=== PATIENT | female | born 1960 | race Caucasian/White ===

== ENCOUNTER 2023-01-12 06:03 | Emergency (ER) | payer BC, SELFPAY ==
[2023-01-12] VITALS (10 sets, daily range): BP systolic 126–144; BP diastolic 60–68; PULSE 54–64; RESP 12–27; TEMP 36.6; O2SAT 95–100; BMI 23.0
--- NOTE | 2023-01-12 06:08 | DI.RAD.S_ITS ---
PROCEDURE: XR CHEST 1V INDICATIONS: SOB TECHNIQUE: One view of the chest was acquired. COMPARISON: None. FINDINGS: Surgical changes and devices: None. Lungs and pleura: Lungs are clear. No pleural effusions or pneumothorax. Mediastinum: Mediastinal contours appear normal. Heart size is normal. Bones and chest wall: No suspicious bony lesions. Overlying soft tissues appear unremarkable. IMPRESSION: No acute cardiopulmonary process. Dictated by: Matthew Wisdom M.D. on 01/12/2023 at 8:27 Approved by: Matthew Wisdom M.D. on 01/12/2023 at 8:27
--- NOTE | 2023-01-12 06:17 | ED_ITS ---
HPI - General Adult <Tomás Coto DO - Last Filed: 01/12/23 17:56> General Chief complaint: Upper Respiratory Symptoms Stated complaint: SOB Time Seen by Provider: 01/12/23 06:05 Source: patient Mode of arrival: Ambulatory Limitations: no limitations History of Present Illness HPI narrative: patient is a 62-year-old female who is here for evaluation which he states is shortness of breath and feeling like she can take a deep breath. States over the past couple days she is felt very fatigued. This morning she woke up and felt like she could not catch her breath. She was also concerned about elevated blood pressure. She denies fevers. Denies chest pain. No lower extremity swe lling. No nausea vomiting or abdominal pain. Related Data Allergies Allergy/AdvReac Type Severity Reaction Status Date / Time No Known Drug Allergies Allergy Verified 01/12/23 07:03 Review of Systems <Tomás Coto DO - Last Filed: 01/12/23 17:56> Constitutional Constitutional: Reports system reviewed and no additional complaints, except as documented Cardiovascular Cardiovascular: Reports system reviewed and no additional complaints, except as documented Respiratory Respiratory: Reports system reviewed and no additional complaints, except as documented Gastrointestinal Gastrointestinal: Reports system reviewed and no additional complaints, except as documented Integumentary/Breasts Skin/Breast: Reports system reviewed and no additional complaints, except as documented Neurologic Neurologic: Reports system reviewed and no additional complaints, except as documented Hematologic/Lymphatic On Anticoagulants: No Patient History <Tomás Coto DO - Last Filed: 01/12/23 17:56> Social History Smoking Status: Never smoker Exam <Tomás Coto DO - Last Filed: 01/12/23 17:56> Initial Vital Signs Initial Vital Signs: Vital Signs Temperature 97.9 F 01/12/23 06:10 Pulse Rate 60 01/12/23 06:10 Respiratory Rate 18 01/12/23 06:10 Blood Pressure 136/63 01/12/23 06:10 Pulse Oximetry 99 01/12/23 06:10 Oxygen Delivery Method Room Air 01/12/23 06:10 Const General: cooperative, comfortable and No ill appearing HENMT Head: normal to inspection and normocephalic Resp Effort & Inspection: normal respiratory effort Auscultation: clear to auscultation bilaterally Cardio Rate: regular rate Rhythm: regular rhythm GI Inspection: normal to inspection Skin General: no rashes or lesions noted Neuro General: patient alert, patient awake and moves all extremities Extrem General: No edema <Libby Dillard DO - Last Filed: 01/12/23 18:55> Initial Vital Signs Initial Vital Signs: Vital Signs Temperature 97.9 F 01/12/23 06:10 Pulse Rate 60 01/12/23 06:10 Respiratory Rate 18 01/12/23 06:10 Blood Pressure 136/63 01/12/23 06:10 Pulse Oximetry 99 01/12/23 06:10 Oxygen Delivery Method Room Air 01/12/23 06:10 Scores <Tomás Coto DO - Last Filed: 01/12/23 17:56> HEART Score Heart Score history: Slightly Suspicious Heart Score EKG: Normal Heart Score Age: 45-64 years old Heart Score risk factors: No known risk factors Heart Score troponin: < or = to normal limit Heart Score Total: 2 <DO Alvarez Camp Last Filed: 01/12/23 18:55> HEART Score Heart Score risk factors: 1-2 risk factors Heart Score Total: 2 Course <DO Alvarez Childress Last Filed: 01/12/23 17:56> Orders Ordered: ED Orders 01/12/23 06:08 XR chest 1V Stat EKG-12 Lead Stat 01/12/23 06:15 Complete Blood Count AUTO DIFF Stat Comprehensive Metabolic Panel Stat D Dimer Stat Lipase Stat NT-proBNP (BNP-Adult 18+) Stat Troponin & CK Cardiac Panel Stat 01/12/23 06:18 COVID19 -Nasal RAPID Stat 01/12/23 08:23 EKG-12 Lead Stat 01/12/23 08:30 Trop I [Troponin I] Stat Vital Signs Vital signs: Vital Signs - 8 hr 01/12/23 06:10 01/12/23 06:15 01/12/23 06:30 Temperature 97.9 F Pulse Rate 60 57 L Respiratory Rate 18 12 Blood Pressure 136/63 126/60 Pulse Oximetry 99 99 Oxygen Delivery Method Room Air 01/12/23 06:30 01/12/23 07:00 01/12/23 07:00 Temperature Pulse Rate 59 L 54 L Respiratory Rate 13 14 Blood Pressure 142/64 H Pulse Oximetry 98 100 Oxygen Delivery Method 01/12/23 07:30 01/12/23 07:30 01/12/23 07:53 Temperature Pulse Rate 58 L Respiratory Rate 22 Blood Pressure 143/68 H 140/67 Pulse Oximetry 99 Oxygen Delivery Method 01/12/23 07:53 01/12/23 08:00 01/12/23 08:00 Temperature Pulse Rate 61 57 L Respiratory Rate 14 13 Blood Pressure 144/68 H Pulse Oximetry 100 100 Oxygen Delivery Method 01/12/23 08:30 01/12/23 08:32 01/12/23 08:32 Temperature Pulse Rate 58 L 64 Respiratory Rate 18 27 H Blood Pressure 130/65 Pulse Oximetry 99 99 Oxygen Delivery Method <Libby Dillard, DO - Last Filed: 01/12/23 18:55> Orders Ordered: ED Orders 01/12/23 06:08 XR chest 1V Stat EKG-12 Lead Stat 01/12/23 06:15 Complete Blood Count AUTO DIFF Stat Comprehensive Metabolic Panel Stat D Dimer Stat Lipase Stat NT-proBNP (BNP-Adult 18+) Stat Troponin & CK Cardiac Panel Stat 01/12/23 06:18 COVID19 -Nasal RAPID Stat 01/12/23 08:23 EKG-12 Lead Stat 01/12/23 08:30 Trop I [Troponin I] Stat Vital Signs Vital signs: Vital Signs - 8 hr 01/12/23 06:10 01/12/23 06:15 01/12/23 06:30 Temperature 97.9 F Pulse Rate 60 57 L Respiratory Rate 18 12 Blood Pressure 136/63 126/60 Pulse Oximetry 99 99 Oxygen Delivery Method Room Air 01/12/23 06:30 01/12/23 07:00 01/12/23 07:00 Temperature Pulse Rate 59 L 54 L Respiratory Rate 13 14 Blood Pressure 142/64 H Pulse Oximetry 98 100 Oxygen Delivery Method 01/12/23 07:30 01/12/23 07:30 01/12/23 07:53 Temperature Pulse Rate 58 L Respiratory Rate 22 Blood Pressure 143/68 H 140/67 Pulse Oximetry 99 Oxygen Delivery Method 01/12/23 07:53 01/12/23 08:00 01/12/23 08:00 Temperature Pulse Rate 61 57 L Respiratory Rate 14 13 Blood Pressure 144/68 H Pulse Oximetry 100 100 Oxygen Delivery Method 01/12/23 08:30 01/12/23 08:32 01/12/23 08:32 Temperature Pulse Rate 58 L 64 Respiratory Rate 18 27 H Blood Pressure 130/65 Pulse Oximetry 99 99 Oxygen Delivery Method Medical Decision Making <Tomás DO Nnamdi - Last Filed: 01/12/23 17:56> Lab Data Lab results reviewed: Yes I reviewed the patient's lab results. 01/12/23 06:15 01/12/23 06:15 Labs: Lab Results 01/12/23 01/12/23 01/12/23 Range/Units 06:15 06:15 06:15 WBC 7.6 (4.5-11.0) X10^3/uL RBC 4.76 (4.0-5.2) X10^6/uL Hgb 15.2 (12.0-16.0) g/dL Hct 43.6 (36-46) % MCV 91.7 (80-100) fL MCH 31.9 (26-34) PG MCHC 34.8 (30-36) % RDW 12.5 (11.6-14.8) % Plt Count 227 (150-400) X10^3/uL Neut % (Auto) 57.4 (50-75) % Lymph % (Auto) 26.2 (25-40) % [place] % (Auto) 11.3 (3-14) % Eos % (Auto) 3.7 (2-4) % Baso % (Auto) 1.4 (0-2) % Neut # (Auto) 4400 (4723-2014) /uL Lymph # (Auto) 2000 (7967-5681) /uL [place] # (Auto) 900 (0-900) /uL Eos # (Auto) 300 (0-450) /uL Baso # (Auto) 100 (0-100) /uL D-Dimer (<500) ng/ml Sodium 135 L (137-145) mmol/L Potassium 4.4 (3.4-5.1) mmol/L Chloride 100 (98-107) mmol/L Carbon Dioxide 29 (22-32) mmol/L BUN 23 H (7-17) mg/dL Creatinine 0.79 (0.52-1.04) mg/dL Estimated GFR > 60 (>60) mL/min BUN/Creatinine Ratio 29.1 H (6-22) Glucose 91 (80-110) mg/dL Calcium 8.7 (8.4-10.2) mg/dL Total Bilirubin 0.6 (0.2-1.3) mg/dL AST 29 (14-36) IU/L ALT 27 (<35) IU/L Alkaline Phosphatase 72 (38-126) U/L Total Creatine Kinase 148 H (30-135) U/L CK-MB (CK-2) TNP CK-MB (CK-2) Rel Index TNP Troponin I < 0.012 (0.01-0.034) ng/mL NT-Pro-B Natriuret Pep 23 (<125) pg/mL Total Protein 6.9 (6.3-8.2) g/dL Albumin 4.5 (3.5-5.0) g/dL Globulin 2.4 (1.7-4.1) g/dL Albumin/Globulin Ratio 1.9 (1.0-2.8) Lipase 140 (23-300) U/L SARS-CoV-2 (PCR) (Negative) 01/12/23 01/12/23 01/12/23 Range/Units 06:15 06:18 08:30 WBC (4.5-11.0) X10^3/uL RBC (4.0-5.2) X10^6/uL Hgb (12.0-16.0) g/dL Hct (36-46) % MCV (80-100) fL MCH (26-34) PG MCHC (30-36) % RDW (11.6-14.8) % Plt Count (150-400) X10^3/uL Neut % (Auto) (50-75) % Lymph % (Auto) (25-40) % [place] % (Auto) (3-14) % Eos % (Auto) (2-4) % Baso % (Auto) (0-2) % Neut # (Auto) (0866-0477) /uL Lymph # (Auto) (2905-7235) /uL [place] # (Auto) (0-900) /uL Eos # (Auto) (0-450) /uL Baso # (Auto) (0-100) /uL D-Dimer < 215 (<500) ng/ml Sodium (137-145) mmol/L Potassium (3.4-5.1) mmol/L Chloride (98-107) mmol/L Carbon Dioxide (22-32) mmol/L BUN (7-17) mg/dL Creatinine (0.52-1.04) mg/dL Estimated GFR (>60) mL/min BUN/Creatinine Ratio (6-22) Glucose (80-110) mg/dL Calcium (8.4-10.2) mg/dL Total Bilirubin (0.2-1.3) mg/dL AST (14-36) IU/L ALT (<35) IU/L Alkaline Phosphatase (38-126) U/L Total Creatine Kinase (30-135) U/L CK-MB (CK-2) CK-MB (CK-2) Rel Index Troponin I < 0.012 (0.01-0.034) ng/mL NT-Pro-B Natriuret Pep (<125) pg/mL Total Protein (6.3-8.2) g/dL Albumin (3.5-5.0) g/dL Globulin (1.7-4.1) g/dL Albumin/Globulin Ratio (1.0-2.8) Lipase (23-300) U/L SARS-CoV-2 (PCR) Negative (Negative) Urine Dip Bedside Urine Glucose Negative Bedside Urine Bilirubin - Negative Bedside Urine Ketone - Negative Urine Specific [place] 1.010 Bedside Urine Occult Blood - Negative Bedside Urine pH 6.5 Bedside Urine Protein - Negative Bedside Urine Urobilinogen - Negative Bedside Urine Nitrite - Negative Bedside Urine Leukocytes - Negative Esterase Point of care testing: Urine Dip Bedside Urine Glucose Negative Bedside Urine Bilirubin - Negative Bedside Urine Ketone - Negative Urine Specific [place] 1.010 Bedside Urine Occult Blood - Negative Bedside Urine pH 6.5 Bedside Urine Protein - Negative Bedside Urine Urobilinogen - Negative Bedside Urine Nitrite - Negative Bedside Urine Leukocytes - Negative Esterase ECG Data Attestation: I personally reviewed and interpreted this ECG as follows: Interpretation: Sinus rhythm Ventricular rate is 61 Normal axis Normal QRS Normal QTC No ST T wave changes MDM Narrative Medical decision making narrative: [place] does have a low risk heart score. EKG is unremarkable. She is not having chest discomfort but states she feel like she can not take a deep breath. Care turned over to day provider to follow-up on remaining labs and disposition. <Libby Dillard, - Last Filed: 01/12/23 18:55> Lab Data Labs: Lab Results 01/12/23 01/12/23 01/12/23 Range/Units 06:15 06:15 06:15 WBC 7.6 (4.5-11.0) X10^3/uL RBC 4.76 (4.0-5.2) X10^6/uL Hgb 15.2 (12.0-16.0) g/dL Hct 43.6 (36-46) % MCV 91.7 (80-100) fL MCH 31.9 (26-34) PG MCHC 34.8 (30-36) % RDW 12.5 (11.6-14.8) % Plt Count 227 (150-400) X10^3/uL Neut % (Auto) 57.4 (50-75) % Lymph % (Auto) 26.2 (25-40) % [place] % (Auto) 11.3 (3-14) % Eos % (Auto) 3.7 (2-4) % Baso % (Auto) 1.4 (0-2) % Neut # (Auto) 4400 (0694-7408) /uL Lymph # (Auto) 2000 (2912-7217) /uL [place] # (Auto) 900 (0-900) /uL Eos # (Auto) 300 (0-450) /uL Baso # (Auto) 100 (0-100) /uL D-Dimer (<500) ng/ml Sodium 135 L (137-145) mmol/L Potassium 4.4 (3.4-5.1) mmol/L Chloride 100 (98-107) mmol/L Carbon Dioxide 29 (22-32) mmol/L BUN 23 H (7-17) mg/dL Creatinine 0.79 (0.52-1.04) mg/dL Estimated GFR > 60 (>60) mL/min BUN/Creatinine Ratio 29.1 H (6-22) Glucose 91 (80-110) mg/dL Calcium 8.7 (8.4-10.2) mg/dL Total Bilirubin 0.6 (0.2-1.3) mg/dL AST 29 (14-36) IU/L ALT 27 (<35) IU/L Alkaline Phosphatase 72 (38-126) U/L Total Creatine Kinase 148 H (30-135) U/L CK-MB (CK-2) TNP CK-MB (CK-2) Rel Index TNP Troponin I < 0.012 (0.01-0.034) ng/mL NT-Pro-B Natriuret Pep 23 (<125) pg/mL Total Protein 6.9 (6.3-8.2) g/dL Albumin 4.5 (3.5-5.0) g/dL Globulin 2.4 (1.7-4.1) g/dL Albumin/Globulin Ratio 1.9 (1.0-2.8) Lipase 140 (23-300) U/L SARS-CoV-2 (PCR) (Negative) 01/12/23 01/12/23 01/12/23 Range/Units 06:15 06:18 08:30 WBC (4.5-11.0) X10^3/uL RBC (4.0-5.2) X10^6/uL Hgb (12.0-16.0) g/dL Hct (36-46) % MCV (80-100) fL MCH (26-34) PG MCHC (30-36) % RDW (11.6-14.8) % Plt Count (150-400) X10^3/uL Neut % (Auto) (50-75) % Lymph % (Auto) (25-40) % [place] % (Auto) (3-14) % Eos % (Auto) (2-4) % Baso % (Auto) (0-2) % Neut # (Auto) (4343-9307) /uL Lymph # (Auto) (9310-6028) /uL [place] # (Auto) (0-900) /uL Eos # (Auto) (0-450) /uL Baso # (Auto) (0-100) /uL D-Dimer < 215 (<500) ng/ml Sodium (137-145) mmol/L Potassium (3.4-5.1) mmol/L Chloride (98-107) mmol/L Carbon Dioxide (22-32) mmol/L BUN (7-17) mg/dL Creatinine (0.52-1.04) mg/dL Estimated GFR (>60) mL/min BUN/Creatinine Ratio (6-22) Glucose (80-110) mg/dL Calcium (8.4-10.2) mg/dL Total Bilirubin (0.2-1.3) mg/dL AST (14-36) IU/L ALT (<35) IU/L Alkaline Phosphatase (38-126) U/L Total Creatine Kinase (30-135) U/L CK-MB (CK-2) CK-MB (CK-2) Rel Index Troponin I < 0.012 (0.01-0.034) ng/mL NT-Pro-B Natriuret Pep (<125) pg/mL Total Protein (6.3-8.2) g/dL Albumin (3.5-5.0) g/dL Globulin (1.7-4.1) g/dL Albumin/Globulin Ratio (1.0-2.8) Lipase (23-300) U/L SARS-CoV-2 (PCR) Negative (Negative) Urine Dip Bedside Urine Glucose Negative Bedside Urine Bilirubin - Negative Bedside Urine Ketone - Negative Urine Specific [place] 1.010 Bedside Urine Occult Blood - Negative Bedside Urine pH 6.5 Bedside Urine Protein - Negative Bedside Urine Urobilinogen - Negative Bedside Urine Nitrite - Negative Bedside Urine Leukocytes - Negative Esterase Point of care testing: Urine Dip Bedside Urine Glucose Negative Bedside Urine Bilirubin - Negative Bedside Urine Ketone - Negative Urine Specific [place] 1.010 Bedside Urine Occult Blood - Negative Bedside Urine pH 6.5 Bedside Urine Protein - Negative Bedside Urine Urobilinogen - Negative Bedside Urine Nitrite - Negative Bedside Urine Leukocytes - Negative Esterase ECG Data Interpretation: Sinus rhythm Ventricular rate is 61 Normal axis Normal QRS Normal QTC No ST T wave changes EKG 2. Sinus bradycardia rate of 52 ME 144 QRS of [address]TC [address] No acute ST elevation or depression appreciated. Patient does not have dynamic changes appreciated from 1st to 2nd EKG today. No priors for comparison from before today. [facility] Narrative Medical decision making narrative: [place] does have a low risk heart score. EKG is unremarkable. She is not having chest discomfort but states she feel like she can not take a deep breath. Care turned over to day provider to follow-up on remaining labs and disposition. 01/12/23 [place]: This is a 62-year-old female signed out to myself by Dr. Coto for complaint of shortness of breath, feeling thirsty, having some polyuria and fatigue and some chronic cough.. Patient notes she is on losartan as her only day of medication. Patient workup includes CBC, CMP, troponin, BNP which so far have not shown any specific change. EKG no priors but has sinus rhythm without any clear ST changes. Patient's chest x-ray does not show any acute change. COVID swab is negative. Patient son thai, had prior appendectomy, tonsillectomy, hysterectomy, no known drug allergies. No tobacco alcohol or illicit. No long distance travel, normal contraceptives. Patient does not endorse any cardiac, pulmonary or embolic history. She does note a lot of anxiety in the past year. Patient does not have a lot high-risk factors but D-dimer was included this is negative, plan for repeat troponin and EKG. Point of care urine is negative. Heart score is 2 for hypertension and age. Discussed today's workup need for follow up. Discussed with patient potential differential, return precautions all questions answered. Discharge Plan Departure Patient Disposition: Home Clinical Impression: Dyspnea Instructions: DI for Shortness of Breath Activity Restrictions/Additional Instructions: Follow-up with your physician for recheck and further workup. Talk with your physician your chronic cough might be related to your losartan. Please return for new or worsening symptoms, new chest pain, increasing shortness of breath, swelling of extremities, lightheadedness or passing out, persistent nausea or vomiting, sweatiness or other new or concerning symptoms. Stand Alone Forms: Patient Portal/API
[2023-01-12 06:27] LABS: Add Manual Diff / Slide Review NO; Basophils Absolute Auto 100 /uL (0-100); Basophils Percent Auto 1.4 % (0-2); Eosinophils Absolute Auto 300 /uL (0-450); Eosinophils Percent Auto 3.7 % (2-4); Hematocrit 43.6 % (36-46); Hemoglobin 15.2 g/dL (12.0-16.0); Lymphocytes Absolute Auto 2000 /uL (1100-4500); Lymphocytes Percent Auto 26.2 % (25-40); Mean Corpuscular HGB Conc 34.8 % (30-36); Mean Corpuscular Hemoglobin 31.9 PG (26-34); Mean Corpuscular Volume 91.7 fL (80-100); Monocytes Absolute Auto 900 /uL (0-900); Monocytes Percent Auto 11.3 % (3-14); Neutrophils Absolute Auto 4400 /uL (1500-7000); Neutrophils Percent Auto 57.4 % (50-75); Platelet Count 227 X10^3/uL (150-400); Red Blood Cell Count 4.76 X10^6/uL (4.0-5.2); Red Cell Distribution Width 12.5 % (11.6-14.8); White Blood Cell Count 7.6 X10^3/uL (4.5-11.0)
[2023-01-12 06:33] LABS: Alanine Aminotransferase 27 IU/L (<35); Albumin 4.5 g/dL (3.5-5.0); Albumin Globulin Ratio 1.9 (1.0-2.8); Alkaline Phosphatase 72 U/L (38-126); Aspartate Aminotransferase 29 IU/L (14-36); BUN Creatinine Ratio 29.1 (6-22); Bilirubin Total 0.6 mg/dL (0.2-1.3); Blood Urea Nitrogen 23 mg/dL (7-17); Calcium 8.7 mg/dL (8.4-10.2); Carbon Dioxide 29 mmol/L (22-32); Chloride 100 mmol/L (98-107); Creatine Kinase 148 U/L (30-135); Estimated Glomerular Filt Rate > 60 mL/min (>60); Globulin 2.4 g/dL (1.7-4.1); Glucose 91 mg/dL (80-110); HEMOLYSIS < 15 (0-50); Lipase 140 U/L (23-300); Potassium 4.4 mmol/L (3.4-5.1); Sodium 135 mmol/L (137-145); Total Protein 6.9 g/dL (6.3-8.2)
[2023-01-12 06:45] LABS: Troponin I < 0.012 ng/mL (0.01-0.034)
[2023-01-12 07:13] LABS: NT-proBNP (BNP-Adult 18+) 23 pg/mL (<125)
[2023-01-12 07:25] LABS: COVID19 -Nasal RAPID Negative (Negative)
[2023-01-12 08:02] LABS: D Dimer < 215 ng/ml (<500)
--- NOTE | 2023-01-12 08:42 | PC.NURSE ---
patient stated that she started her losarton of unknown concentration, 3 days ago, after not taking them for a while.
[2023-01-12 09:05] LABS: Troponin I < 0.012 ng/mL (0.01-0.034)
== END 2023-01-12 09:36 | disposition home or self-care (01) ==
PROVIDERS: Emergency Medicine; Emergency Provider Emergency Medicine
DX: R06.00 Dyspnea, unspecified (principal); R00.1 Bradycardia, unspecified; Z20.822 Contact with and (suspected) exposure to COVID-19
CPT/HCPCS: 36415; 71045; 80053; 81003; 82550; 83690; 83880; 84484; 85025; 85379; 87635; 93005; 93010; 99284; C9803